=== PATIENT | female | born 1995 | race Caucasian/White ===

== ENCOUNTER 2024-05-27 21:42 | Emergency (ER) | payer SELFPAY ==
[~2024-05-27] VITALS: Ht 172.7 cm; Wt 75.0 kg
[2024-05-27 21:44] VITALS: TEMP 37.1; O2SAT 99
[2024-05-27 22:37] VITALS: TEMP 98.7
[2024-05-27] MEDS: ACETAMINOPHEN 500MG TABLET PO ONE (22:37)
[2024-05-27] MEDS: DOCUSATE SODIUM 100MG CAPSULE PO ONE (22:37)
[2024-05-27] MEDS: ONDANSETRON HCL 4MG TABLET PO ONE (22:38)
[2024-05-27] MEDS: POLYETHYLENE GLYCOL 3350 (17GM) 1 DOSE PACK PO ONE (22:47)
[2024-05-27 22:58] LABS: CLARITY URINE CLEAR (CLEAR); COLOR URINE YELLOW (YELLOW); GLUCOSE URINE NEGATIVE (NEGATIVE); KETONES URINE 1+ (NEGATIVE); LEUKOCYTE ESTERASE URINE NEGATIVE (NEGATIVE); NITRITE URINE NEGATIVE (NEGATIVE); OCCULT BLOOD URINE NEGATIVE (NEGATIVE); PROTEIN URINE NEGATIVE (NEGATIVE); SPECIFIC GRAVITY URINE 1.013 (1.005-1.030)
[2024-05-27 23:27] LABS: BASOPHILS % 0.2 % (0.0-2.0); EOSINOPHILS % 0.3 % (0.0-5.0); LYMPHOCYTES % 10.1 % (20.0-50.0); MEAN CORPUSCULAR HEMOGLOBIN 28.3 pg (28.0-32.0); MEAN CORPUSCULAR VOLUME 80.9 fL (81.0-99.0); MEAN PLATELET VOLUME 8.4 fl (7.4-10.4); MONOCYTES % 4.3 % (2.0-8.0); NEUTROPHILS % 85.1 % (40.0-76.0); PLATELET 289 x1000/uL (130-400); RED BLOOD CELL COUNT 4.95 mill/uL (4.2-5.4); RED CELL DISTRIBUTION WIDTH 13.7 % (11.6-14.6); WHITE BLOOD COUNT 15.1 x1000/uL (4.5-11.0)
[2024-05-27 23:35] LABS: CHLORIDE 106 mEq/L (98-107); POTASSIUM 3.1 mEq/L (3.5-5.1); SODIUM 138 mEq/L (136-145)
[2024-05-27 23:36] LABS: CALCIUM 9.5 mg/dL (8.7-10.4); CARBON DIOXIDE 19 mEq/L (21-32)
[2024-05-27 23:41] LABS: CREATININE 0.9 mg/dL (0.6-1.0); GLUCOSE 151 mg/dL (70-105); UREA NITROGEN BLOOD 6 mg/dL (9-23)
[2024-05-27 23:43] LABS: ALANINE AMINOTRANSFERASE 67 IU/L (10-49); ALBUMIN 4.4 g/dL (3.2-4.8); ASPARTATE AMINOTRANSFERASE 64 IU/L (<34); BILIRUBIN DIRECT 0.3 mg/dL (<=3.0); BILIRUBIN TOTAL 0.7 mg/dL (0.1-1.0)
[2024-05-27 23:44] LABS: PROTEIN TOTAL 7.8 g/dL (6.0-8.3)
[2024-05-28 00:32] VITALS: BP 133/88; PULSE 90; RESP 20
[2024-05-28] MEDS ORDERED: POLY17PO3 MT (00:32)
[2024-05-28] MEDS ORDERED: NAPR-1176 MT (00:32)
[2024-05-28] MEDS: IBUPROFEN 400MG TABLET PO ONE (00:32)
== END 2024-05-28 00:42 | disposition home or self-care (01) ==
LOC: ER 21:42
DX: K59.09 Other constipation (principal); E87.6 Hypokalemia; Z79.1 Long term (current) use of non-steroidal anti-inflammatories (NSAID)
CPT/HCPCS: 80076; 80048; 81003; 81025; 83690; 85025; 36415; 74018; 99284; Q0162; Z7610